=== PATIENT | male | born 1940 | race Caucasian/White ===

== ENCOUNTER 2016-07-30 18:00 | Emergency (ER) | payer MEDICARE ==
[~2016-07-30] VITALS: Ht 180.3 cm; Wt 131.8 kg
[2016-07-30 18:00] VITALS: BP 153/80; PULSE 60; RESP 18; TEMP 97.9; O2SAT 98
[~2016-07-30 18:00] MED LIST: AMOX500T PO; CALC0.25 PO; CARD4TAB2 PO; CARV12.5 PO; CLON.2 PO; COUM4TAB7 PO; GLIP5 PO; KLOR20TA6 PO; LISI-366 PO; NITR.4 SL; NORV2.5T11 PO; OXYBXL10 PO; PRAV40TA PO; TORS20 PO; VITA50LO PO; [UNRECOGNIZED DRUG - CODE]
[2016-07-30 18:25] VITALS: BP 153/80; PULSE 71; RESP 16; O2SAT 97
--- NOTE | 2016-07-30 18:28 | PD ---
HPI Chief Complaint: epigastric pain radiating to the chest Time Seen by Provider: 18:09 Travel History International Travel<30 days: No Contact w/Intl Traveler<30days: No Traveled to known affect area: No History of Present Illness HPI This is a 75-year-old gentleman with a history of malignant hypertension, diabetes mellitus, hyperlipidemia, obesity, who presents today with complaints of sudden onset of epigastric pain radiating into his chest. Patient reports the pain as a 5 out of 10 on the pain scale. He states it starts in his epigastrium and radiates up to his mid chest. He denies any vomiting but does state that he felt extremely nauseous. He also felt sweaty when the episode started. He reports it felt like "indigestion". The patient denies any cough. He does report shortness of breath. PFSH Past Medical History Arthritis: Yes Asthma: No Atrial Fibrillation: Yes Blood Disorders: No Heart Rhythm Problems: Yes (afib) Cancer: No Cardiovascular Problems: Yes High Cholesterol: Yes Chemotherapy: No Chest Pain: Yes Congestive Heart Failure: Yes COPD: Yes Coronary Artery Disease: Yes Diabetes: Yes Diminished Hearing: No Endocrine: Yes Gastrointestinal Disorders: Yes (TAKES LAXATIVES & INCREASED FIBER - MANUAL DISEMPACTION) GERD: No Genitourinary: Yes Hiatal Hernia: No Hypertension: Yes Immune Disorder: No Implanted Vascular Access Dvce: Yes Kidney Stones: No Musculoskeletal: No Neurologic: No Psychiatric: No Reproductive: No Respiratory: Yes Myocardial Infarction: No Radiation Therapy: No Renal Failure: No Sleep Apnea: Yes Thyroid Disease: Yes (HYPOTHYROID) Ulcer: No Past Surgical History Abdominal Surgery: Yes (gall baldder removal) AICD: No Arteriovenous Shunt: No Body Medical Devices: SPINAL HARDWARE Cardiac Surgery: No Cholecystectomy: Yes Ear Surgery: No Endocrine Surgery: No Eye Surgery: No Genitourinary Surgery: No Gynecologic Surgery: No Insulin Pump: No Joint Replacement: No Neurologic Surgery: No Oral Surgery: No Pacemaker: No Thoracic Surgery: No (L2-L5 fusion laminectomy) Other Surgery: Yes Social History Alcohol Use: Yes (GLASS OF WINE X1 WEEK) Tobacco Use: No (QUIT IN 1999) Substance Use: No Allergies-Medications (Allergen,Severity, Reaction): Coded Allergies: Latex (Verified Allergy, Severe, 07/30/16) Reported Meds & Prescriptions Reported Meds & Active Scripts Active Reported Glipizide 5 Mg Tab 5 Mg PO DAILY Take 30 minutes before a meal Calcitriol 0.25 Mcg Cap 0.25 Mcg PO DAILY Oxybutynin ER 24 HR (Oxybutynin Chloride) 10 Mg Tab 10 Mg PO DAILY Coumadin (Warfarin) 5 Mg Tab 5 Mg PO DAILY Pravastatin 40 Mg Tab 40 Mg PO DAILY Torsemide 20 Mg Tab 20 Mg PO DAILY Norvasc (Amlodipine Besylate) 2.5 Mg Tab 2.5 Mg PO DAILY Coreg (Carvedilol) 12.5 Mg Tab 12.5 Mg PO BID Symbicort Inh (Budesonide/Formoterol Fumarate) 160-4.5 Mcg/Act Aero 1 Puff INH Q12HR Potassium Chloride ER (Potassium Chloride) 20 Meq Tab 20 Meq PO BID Lisinopril 40 Mg Tab 40 Mg PO DAILY Catapres (Clonidine) 0.2 Mg Tab 0.2 Mg PO BID Bactrim DS (Sulfamethoxazole-Trimethoprim) 800-160 Mg Tab 1 Tab PO MOWEFR Take 1 tablet daily on Monday,Monday and Monday Keflex (Cephalexin) Unknown Strength Cap 1 Cap PO BID 21 Days Review of Systems General / Constitutional: No: Fever, Chills HENT: No: Headaches, Lightheadedness Cardiovascular: Positive: Chest Pain or Discomfort, Irregular Rhythm (history of atrial fibrillation) Respiratory: Positive: Shortness of Breath, No: Cough Gastrointestinal: Positive: Nausea, Abdominal Pain (be gastric), Other ( history of neurogenic:), No: Vomiting Genitourinary: Positive: Other (patient self catheters secondary to her neurogenic bladder) Musculoskeletal: Positive: Edema (chronic), No: Arthralgias Neurologic: No: Weakness, Dizziness, Syncope Physical Exam Narrative GENERAL: This is a obese male who presents with mild respiratory discomfort. SKIN: Warm and dry. HEAD: Atraumatic. Normocephalic. EYES: No scleral icterus. No injection or drainage. ENT: No nasal bleeding or discharge. Mucous membranes pink and moist. NECK: Trachea midline. Supple CARDIOVASCULAR: Rate in the 50s. Irregularly irregular consistent with his history of atrial fibrillation. RESPIRATORY: No accessory muscle use. Clear to auscultation. Breath sounds equal bilaterally. No Rales or rhonchi appreciated. GASTROINTESTINAL: Abdomen soft, obese, non-tender, nondistended. There is no tenderness to palpation on the abdominal exam including the epigastrium. MUSCULOSKELETAL: No obvious deformities. No cyanosis. Bilateral lower extremity edema. NEUROLOGICAL: Awake and alert. No obvious cranial nerve deficits. Motor grossly within normal limits. Normal speech. Data Data Last Documented VS Vital Signs Date Time Temp Pulse Resp B/P Pulse Ox O2 Delivery O2 Flow Rate FiO2 07/30/16 18:25 71 16 153/80 97 Room Air 07/30/16 18:00 97.9 Orders Electrocardiogram (07/30/16 ) Ckmb (Isoenzyme) Profile (07/30/16 18:16) Complete Blood Count With Diff (07/30/16 18:16) Comprehensive Metabolic Panel (07/30/16 18:16) Magnesium (Mg) (07/30/16 18:16) Prothrombin Time / Inr (Pt) (07/30/16 18:16) Act Partial Throm Time (Ptt) (07/30/16 18:16) Troponin I (07/30/16 18:16) Lipase (07/30/16 18:16) Chest, Single Ap (07/30/16 18:16) Ecg Monitoring (07/30/16 18:16) Bilateral Bp Monitoring (07/30/16 18:16) Iv Access Insert/Monitor (07/30/16 18:16) Oximetry (07/30/16 18:16) Oxygen Administration (07/30/16 18:16) Sodium Chloride 0.9% Flush (Ns Flush) (07/30/16 18:30) Nitroglycerin Sl (Nitrostat Sl) (07/30/16 18:30) Labs Laboratory Tests Test 07/30/16 18:20 White Blood Count 10.1 TH/MM3 Red Blood Count 4.47 MIL/MM3 Hemoglobin 13.7 GM/DL Hematocrit 39.6 % Mean Corpuscular Volume 88.6 FL Mean Corpuscular Hemoglobin 30.6 PG Mean Corpuscular Hemoglobin 34.6 % Concent Red Cell Distribution Width 14.0 % Platelet Count 190 TH/MM3 Mean Platelet Volume 7.8 FL Neutrophils (%) (Auto) 78.1 % Lymphocytes (%) (Auto) 14.8 % Monocytes (%) (Auto) 5.1 % Eosinophils (%) (Auto) 1.4 % Basophils (%) (Auto) 0.6 % Neutrophils # (Auto) 7.9 TH/MM3 Lymphocytes # (Auto) 1.5 TH/MM3 Monocytes # (Auto) 0.5 TH/MM3 Eosinophils # (Auto) 0.1 TH/MM3 Basophils # (Auto) 0.1 TH/MM3 CBC Comment DIFF FINAL Differential Comment Prothrombin Time 22.0 SEC Prothromb Time International 1.9 RATIO Ratio Activated Partial 32.1 SEC Thromboplast Time Sodium Level 139 MEQ/L Potassium Level 3.6 MEQ/L Chloride Level 99 MEQ/L Carbon Dioxide Level 33.4 MEQ/L Anion Gap 7 MEQ/L Blood Urea Nitrogen 16 MG/DL Creatinine 1.55 MG/DL Estimat Glomerular Filtration 44 ML/MIN Rate Random Glucose 214 MG/DL Calcium Level 8.6 MG/DL Magnesium Level 2.1 MG/DL Aspartate Amino Transf 47 U/L (AST/SGOT) Albumin 3.5 GM/DL Lipase 219 U/L [facility] Medical Decision Making Medical Screen Exam Complete: Yes Emergency Medical Condition: Yes Medical Record Reviewed: Yes Differential Diagnosis ACS versus pancreatitis versus gastritis versus peptic ulcer disease Narrative Course 75-year-old gentleman with history of hypertension malignant hyperthermia, hyperlipidemia, diabetes no skull who presents today with complaints of epigastric pain with radiation up to his chest. The patient has A. fib with slow ventricular sponson EKG. Cardiac enzymes are pending at this time. The patient be signed out to Dr. Cordova, physician replacing this physician, who will make the appropriate disposition. I believe the patient will likely need to be admitted as an inpatient rather than the chest pain center. Diagnosis Primary Impression: Atypical chest pain Additional Impressions: A-fib Malignant hypertension Hyperlipidemia associated with type 2 diabetes mellitus Rigoberto Gordon MD Jul 30, 2016 18:28
[2016-07-30] MEDS ORDERED: SODIUM CHLORIDE 0.9% FLUSH 5 ML FLUSH IVF PRN (18:30)
[2016-07-30] MEDS ORDERED: PRAV40TA2 PO (18:33)
[2016-07-30] MEDS ORDERED: CALC0.25 PO (18:33)
[2016-07-30] MEDS ORDERED: TORS20TA PO (18:33)
[2016-07-30] MEDS ORDERED: CLON.2 PO (18:33)
[2016-07-30] MEDS ORDERED: LISI40TA PO (18:33)
[2016-07-30] MEDS ORDERED: COUM5TAB PO (18:33)
[2016-07-30] MEDS ORDERED: CARV12.5 PO (18:33)
[2016-07-30] MEDS ORDERED: POTA-163 PO (18:33)
[2016-07-30] MEDS ORDERED: GLIP5TAB8 PO (18:33)
[2016-07-30] MEDS: NITROGLYCERIN 0.4 MG SL 25 TABS/BTL SL SCH ×3 (18:33→18:47)
[2016-07-30] MEDS ORDERED: CEPH-459 PO (18:33)
[2016-07-30] MEDS ORDERED: SYMB160A INH (18:33)
[2016-07-30] MEDS ORDERED: NORV2.5T PO (18:33)
[2016-07-30] MEDS ORDERED: OXYB10TA PO (18:33)
[2016-07-30] MEDS ORDERED: BACT800T5 PO (18:33)
[2016-07-30 18:41] LABS: AUTOMATED NEUTROPHIL # 7.9 TH/MM3 (1.8-7.7); BASOPHIL # 0.1 TH/MM3 (0-0.2); BASOPHIL % 0.6 % (0.0-2.0); EOSINOPHIL # 0.1 TH/MM3 (0-0.4); EOSINOPHIL % 1.4 % (0.0-4.0); HEMATOCRIT 39.6 % (39.0-51.0); HEMO FLAGS DIFF FINAL; LYMPH % 14.8 % (9.0-44.0); LYMPHOCYTE # 1.5 TH/MM3 (1.0-4.8); MEAN CELL VOLUME 88.6 FL (80.0-100.0); MEAN CORPUSCULAR HEMOGLOBIN 30.6 PG (27.0-34.0); MEAN CORPUSCULAR HGB CONC 34.6 % (32.0-36.0); MONO % 5.1 % (0.0-8.0); NEUT % 78.1 % (16.0-70.0); PLATELET COUNT 190 TH/MM3 (150-450); RED BLOOD COUNT 4.47 MIL/MM3 (4.50-5.90); WHITE BLOOD COUNT 10.1 TH/MM3 (4.0-11.0)
[2016-07-30 18:50] LABS: APTT (PATIENT) 32.1 SEC (24.3-30.1); INTERNATIONAL NORMALIZED RATIO 1.9 RATIO
[2016-07-30 19:03] LABS: ANION GAP 7 MEQ/L (5-15); AST (GOT) 47 U/L (15-37); BICARBONATE 33.4 MEQ/L (21.0-32.0); BLOOD UREA NITROGEN 16 MG/DL (7-18); CHLORIDE 99 MEQ/L (98-107); GLOMERULAR FILTRATION RATE 44 ML/MIN (>89); MAGNESIUM 2.1 MG/DL (1.5-2.5); POTASSIUM 3.6 MEQ/L (3.5-5.1); SODIUM (NA) 139 MEQ/L (136-145)
--- NOTE | 2016-07-30 19:04 | RADRPT ---
EXAM DATE/TIME: 07/30/2016 18:33 [facility] COMPARISON: No previous studies available for comparison. INDICATIONS : Chronic Chest Pain MEDICAL HISTORY : Hyperthyroidism. Renal failure, acute. Hypertension. Hypercholesterolemia. Diabetes mellitus typ e II. AFIB, Sleep Apnea. Arthritis. SURGICAL HISTORY : Cholecystectomy ENCOUNTER: Initial ACUITY: 1 day PAIN SCORE: 6/10 LOCATION: Bilateral chest FINDINGS: A single view of the chest demonstrates cardiomegaly. Minimal basilar atelectasis. No consolidation o r effusion. CONCLUSION: 1. Minimal basilar atelectasis. Augusto Landis MD on July 30, 2016 at 19:02 Board Certified Radiologist. This report was verified electronically.
[2016-07-30 19:08] LABS: ALKALINE PHOSPHATASE 97 U/L (45-117); ALT (GPT) 26 U/L (12-78); TOTAL BILIRUBIN ADULT 2.3 MG/DL (0.2-1.0)
[2016-07-30 20:03] LABS: CREATINE KINASE 80 U/L (39-308)
--- NOTE | 2016-07-30 20:19 | PD ---
Physical Exam Date Seen by Provider: Jul 30, 2016 Narrative The patient was seen from Dr. Gordon at [address] labs[address]. Gordon' s plan was to admit the patient hospital for further evaluation. The patient's chief complaint to me when I went in to see him was "I'm ready to go home now." Patient reports abdominal bloating. He states that he has a neurogenic bowel and bladder and has to self. His disimpacts him. Patient states that he just sometimes gets gassy and bloated. He states that he just needs something for gas and he would like to go home. He does not feel that he needs a laxative. He states that he does not need an enema. Data Data Last Documented VS Vital Signs Date Time Temp Pulse Resp B/P Pulse Ox O2 Delivery O2 Flow Rate FiO2 07/30/16 18:25 71 16 153/80 97 Room Air 07/30/16 18:00 97.9 Orders Electrocardiogram (07/30/16 ) Ckmb (Isoenzyme) Profile (07/30/16 18:16) Complete Blood Count With Diff (07/30/16 18:16) Comprehensive Metabolic Panel (07/30/16 18:16) Magnesium (Mg) (07/30/16 18:16) Prothrombin Time / Inr (Pt) (07/30/16 18:16) Act Partial Throm Time (Ptt) (07/30/16 18:16) Troponin I (07/30/16 18:16) Lipase (07/30/16 18:16) Chest, Single Ap (07/30/16 18:16) Ecg Monitoring (07/30/16 18:16) Bilateral Bp Monitoring (07/30/16 18:16) Iv Access Insert/Monitor (07/30/16 18:16) Oximetry (07/30/16 18:16) Oxygen Administration (07/30/16 18:16) Sodium Chloride 0.9% Flush (Ns Flush) (07/30/16 18:30) Nitroglycerin Sl (Nitrostat Sl) (07/30/16 18:30) Labs Laboratory Tests Test 07/30/16 18:20 White Blood Count 10.1 TH/MM3 Red Blood Count 4.47 MIL/MM3 Hemoglobin 13.7 GM/DL Hematocrit 39.6 % Mean Corpuscular Volume 88.6 FL Mean Corpuscular Hemoglobin 30.6 PG Mean Corpuscular Hemoglobin 34.6 % Concent Red Cell Distribution Width 14.0 % Platelet Count 190 TH/MM3 Mean Platelet Volume 7.8 FL Neutrophils (%) (Auto) 78.1 % Lymphocytes (%) (Auto) 14.8 % Monocytes (%) (Auto) 5.1 % Eosinophils (%) (Auto) 1.4 % Basophils (%) (Auto) 0.6 % Neutrophils # (Auto) 7.9 TH/MM3 Lymphocytes # (Auto) 1.5 TH/MM3 Monocytes # (Auto) 0.5 TH/MM3 Eosinophils # (Auto) 0.1 TH/MM3 Basophils # (Auto) 0.1 TH/MM3 CBC Comment DIFF FINAL Differential Comment Prothrombin Time 22.0 SEC Prothromb Time International 1.9 RATIO Ratio Activated Partial 32.1 SEC Thromboplast Time Sodium Level 139 MEQ/L Potassium Level 3.6 MEQ/L Chloride Level 99 MEQ/L Carbon Dioxide Level 33.4 MEQ/L Anion Gap 7 MEQ/L Blood Urea Nitrogen 16 MG/DL Creatinine 1.55 MG/DL Estimat Glomerular Filtration 44 ML/MIN Rate Random Glucose 214 MG/DL Calcium Level 8.6 MG/DL Magnesium Level 2.1 MG/DL Total Bilirubin 2.3 MG/DL Aspartate Amino Transf 47 U/L (AST/SGOT) Alanine Aminotransferase 26 U/L (ALT/SGPT) Alkaline Phosphatase 97 U/L Total Creatine Kinase 80 U/L Troponin I LESS THAN 0.02 NG/ML Total Protein 6.9 GM/DL Albumin 3.5 GM/DL Lipase 219 U/L [facility] Supervised Visit with AISHWARYA: No Narrative Course Patient is having no respiratory distress. His heart is in a sinus rhythm. His abdomen is soft but distended. There is no tenderness to palpation. CBC & BMP Diagram 07/30/16 18:20 Last Impressions Chest X-Ray 07/30/166 Signed Impressions: Service Date/Time: Saturday, July 30, 2016 18:33 - CONCLUSION: 1. Minimal basilar atelectasis. Augusto Landis MD CE neg. Diagnosis Primary Impression: Atypical chest pain Additional Impressions: Malignant hypertension Hyperlipidemia associated with type 2 diabetes mellitus A-fib Qualified Code: I48.2 - Chronic atrial fibrillation Patient Instructions: Acute Abdominal Pain (ED), General Instructions Disposition: 01 DISCHARGE HOME Condition: Stable Hafsa Cordova MD Jul 30, 2016 20:19
[2016-07-30 20:30] VITALS: BP 172/75; PULSE 64; RESP 18; O2SAT 97
[2016-07-30] MEDS ORDERED: SIMETHICONE 125 MG CHEWABLE TAB PO ONE (20:30)
--- NOTE | 2016-07-31 15:35 | EKG ---
Date Performed: 07/30/2016 Time Performed: 18:12:32 PTAGE: 75 years EKG: ATRIAL FIBRILLATION WITH SLOW VENTRICULAR RESPONSE RIGHT BUNDLE BRANCH BLOCK Since previous tracing, no significant change noted ABNORMAL ECG PREVIOUS TRACING : 02/12/2015 02.50 DOCTOR: Dru Adamson Interpretating Date/Time 07/31/2016 15:34:31
== END 2016-07-30 21:02 | disposition home or self-care (01) ==
LOC: NEPC 18:00
DX: R07.89 Other chest pain (principal); I10 Essential (primary) hypertension; E78.5 Hyperlipidemia, unspecified; E11.9 Type 2 diabetes mellitus without complications; I48.91 Unspecified atrial fibrillation; K59.2 Neurogenic bowel, not elsewhere classified; N31.9 Neuromuscular dysfunction of bladder, unspecified; Z87.891 Personal history of nicotine dependence
CPT/HCPCS: 71010; 80053; 82550; 83690; 83735; 84484; 85025; 85610; 85730; 93005

== ENCOUNTER 2017-09-21 06:26 | Emergency (ER) | payer MEDICARE ==
[~2017-09-21] VITALS: Ht 182.9 cm; Wt 129.4 kg
[~2017-09-21 06:26] MED LIST changes: -AMOX500T PO; +BACT800T5 PO; -CARD4TAB2 PO; +CEPH-459 PO; -COUM4TAB7 PO; +COUM5TAB PO; -GLIP5 PO; +GLIP5TAB8 PO; -KLOR20TA6 PO; -LISI-366 PO; +LISI40TA PO; -NITR.4 SL; +NORV2.5T PO; -NORV2.5T11 PO; +OXYB10TA PO; -OXYBXL10 PO; +POTA-163 PO; -PRAV40TA PO; +PRAV40TA2 PO; +SYMB160A INH; -TORS20 PO; +TORS20TA PO; -VITA50LO PO; -[UNRECOGNIZED DRUG - CODE]
[2017-09-21 06:34] VITALS: BP 168/79; PULSE 103; TEMP 99.9; O2SAT 95
[2017-09-21] MEDS ORDERED: NITR1SUS2 PO (06:52)
[2017-09-21] MEDS ORDERED: DOXA1TAB43 PO (06:55)
--- NOTE | 2017-09-21 07:12 | PD ---
HPI Chief Complaint: Skin Problem Time Seen by Provider: 06:54 Travel History International Travel<30 days: No Contact w/Intl Traveler<30days: No Traveled to known affect area: No History of Present Illness HPI 77-year-old male is complaining of pain and swelling of his right leg. He has had recurrent bouts of cellulitis and thinks is having cellulitis of the right leg. He was diagnosed with cellulitis of the right leg on September 02 of this year. He was put on Augmentin and had considerable improvement. However it started getting worse yesterday and last night he had temp of 100.3. The redness and swelling has recurred. He has a history of type 2 diabetes. He did have a Doppler ultrasound on August 30 for DVT which was negative. He has had a laminectomy at L3 through L5 which was left in with a neurogenic bladder and bowel. He is able to walk. He has pain with walking on the right leg. PFSH Past Medical History Hx Anticoagulant Therapy: Yes (WARFARIN ) Arthritis: Yes Asthma: No Atrial Fibrillation: Yes (A-FIB/A-FLUTTER) Blood Disorders: No Heart Rhythm Problems: Yes (afib, RBBB) Cancer: No Cardiovascular Problems: Yes (A-FIB/A-FLUTTER) High Cholesterol: Yes Chemotherapy: No Chest Pain: Yes Congestive Heart Failure: Yes COPD: Yes Coronary Artery Disease: Yes Diabetes: Yes Patient Takes Glucophage: No Diminished Hearing: No Endocrine: Yes Gastrointestinal Disorders: Yes (TAKES LAXATIVES & INCREASED FIBER - MANUAL DISEMPACTION) GERD: No Genitourinary: Yes Hiatal Hernia: No Hypertension: Yes Immune Disorder: No Implanted Vascular Access Dvce: Yes Kidney Stones: No Medical other: Yes ( neurogenic bladder and bowel) Musculoskeletal: No Neurologic: No Psychiatric: No Reproductive: No Respiratory: Yes (COPD) Myocardial Infarction: No Radiation Therapy: No Renal Failure: No Sleep Apnea: Yes Thyroid Disease: Yes (HYPOTHYROID) Ulcer: No Tetanus Vaccination: Unknown ?: Not Past Surgical History Abdominal Surgery: Yes (gall baldder removal) AICD: No Arteriovenous Shunt: No Body Medical Devices: SPINAL HARDWARE Cardiac Surgery: No Cholecystectomy: Yes Ear Surgery: No Endocrine Surgery: No Eye Surgery: No Genitourinary Surgery: No Gynecologic Surgery: No Insulin Pump: No Joint Replacement: No Neurologic Surgery: No Oral Surgery: No Pacemaker: No Other Surgery: Yes Social History Alcohol Use: Yes (GLASS OF WINE X1 WEEK) Tobacco Use: No (QUIT IN 1999) Substance Use: No Allergies-Medications (Allergen,Severity, Reaction): Coded Allergies: latex (Verified Allergy, Severe, 09/21/17) Reported Meds & Prescriptions Reported Meds & Active Scripts Active Reported Doxazosin (Doxazosin Mesylate) 8 Mg Tab 8 Mg PO DAILY Nitrofurantoin Liq (Nitrofurantoin) 25 Mg/5 Ml Susp 100 Mg PO QID Glipizide 5 Mg Tab 5 Mg PO DAILY Take 30 minutes before a meal Calcitriol 0.25 Mcg Cap 0.25 Mcg PO DAILY Oxybutynin ER 24 HR (Oxybutynin Chloride) 10 Mg Tab 10 Mg PO DAILY Coumadin (Warfarin) 5 Mg Tab 5 Mg PO DAILY Pravastatin 40 Mg Tab 40 Mg PO DAILY Torsemide 20 Mg Tab 20 Mg PO DAILY Norvasc (Amlodipine Besylate) 2.5 Mg Tab 2.5 Mg PO DAILY Coreg (Carvedilol) 12.5 Mg Tab 12.5 Mg PO BID Potassium Chloride ER (Potassium Chloride) 20 Meq Tab 20 Meq PO BID Lisinopril 40 Mg Tab 40 Mg PO DAILY Catapres (Clonidine) 0.2 Mg Tab 0.2 Mg PO BID Review of Systems General / Constitutional: Positive: Fever, Chills Eyes: No: Diploplia, Blurred Vision HENT: No: Headaches, Vertigo Cardiovascular: No: Chest Pain or Discomfort Respiratory: No: Shortness of Breath Gastrointestinal: No: Nausea, Vomiting Genitourinary: Positive: Dysuria Musculoskeletal: No: Myalgias Skin: Positive Rash Neurologic: No: Weakness Hematologic/Lymphatic: No: Easy Bruising Physical Exam Narrative GENERAL: Well-developed male SKIN: Focused skin assessment warm/dry. HEAD: Atraumatic. Normocephalic. EYES: Pupils equal and round. No scleral icterus. No injection or drainage. ENT: No nasal bleeding or discharge. Mucous membranes pink and moist. NECK: Trachea midline. No JVD. CARDIOVASCULAR: Regular rate and rhythm. No murmur appreciated. RESPIRATORY: No accessory muscle use. Clear to auscultation. Breath sounds equal bilaterally. GASTROINTESTINAL: Abdomen soft, non-tender, nondistended. Hepatic and splenic margins not palpable. MUSCULOSKELETAL: No obvious deformities. No clubbing. No cyanosis. No edema. He has extensive erythema and swelling of the right leg. It extends from the below the knee above the knee to the groin. Left leg is normal NEUROLOGICAL: Awake and alert. No obvious cranial nerve deficits. Motor grossly within normal limits. Normal speech. PSYCHIATRIC: Appropriate mood and affect; insight and judgment normal. Data Data Last Documented VS Vital Signs Date Time Temp Pulse Resp B/P (MAP) Pulse Ox O2 Delivery O2 Flow Rate FiO2 09/21/17 11:23 09/21/17 11:22 76 16 98 Room Air 09/21/17 06:34 99.9 Orders Orders Complete Blood Count With Diff (09/21/17 07:07) Comprehensive Metabolic Panel (09/21/17 07:07) Blood Culture (09/21/17 07:07) Us Leg Venous Doppler Bilat (09/21/17 ) Lactic Acid Sepsis Protocol (09/21/17 07:09) Direct Bilirubin (09/21/17 07:34) Potassium Chloride (Kcl) (09/21/17 08:15) [facility] ([facility] (09/21/17 09:15) Dalbavancin Inj (Dalvance Inj) (09/21/17 09:08) [facility] ([facility] (09/21/17 10:00) Ed Discharge Order (09/21/17 12:32) Labs Laboratory Tests Test 09/21/17 07:34 09/21/17 07:35 White Blood Count 18.9 TH/MM3 Red Blood Count 5.00 MIL/MM3 Hemoglobin 15.1 GM/DL Hematocrit 44.7 % Mean Corpuscular Volume 89.3 FL Mean Corpuscular Hemoglobin 30.1 PG Mean Corpuscular Hemoglobin Concent 33.7 % Red Cell Distribution Width 13.3 % Platelet Count 202 TH/MM3 Mean Platelet Volume 7.4 FL Neutrophils (%) (Auto) 92.8 % Lymphocytes (%) (Auto) 4.7 % Monocytes (%) (Auto) 1.8 % Eosinophils (%) (Auto) 0.5 % Basophils (%) (Auto) 0.2 % Neutrophils # (Auto) 17.6 TH/MM3 Lymphocytes # (Auto) 0.9 TH/MM3 Monocytes # (Auto) 0.3 TH/MM3 Eosinophils # (Auto) 0.1 TH/MM3 Basophils # (Auto) 0.0 TH/MM3 CBC Comment DIFF FINAL Differential Comment Blood Urea Nitrogen 18 MG/DL Creatinine 1.50 MG/DL Random Glucose 210 MG/DL Total Protein 8.1 GM/DL Albumin 3.9 GM/DL Calcium Level 8.8 MG/DL Alkaline Phosphatase 79 U/L Aspartate Amino Transf (AST/SGOT) 16 U/L Alanine Aminotransferase (ALT/SGPT) 15 U/L Total Bilirubin 3.3 MG/DL Direct Bilirubin 0.4 MG/DL Sodium Level 137 MEQ/L Potassium Level 3.3 MEQ/L Chloride Level 98 MEQ/L Carbon Dioxide Level 29.2 MEQ/L Anion Gap 10 MEQ/L Estimat Glomerular Filtration Rate 45 ML/MIN Lactic Acid Level 1.6 mmol/L [facility] Medical Decision Making Medical Screen Exam Complete: Yes Emergency Medical Condition: Yes Medical Record Reviewed: Yes Differential Diagnosis Patient has extensive cellulitis of the right leg. I discussed admission with the patient and that was my recommendation. The patient has a strong desire not to be admitted to the hospital. Because of his neurogenic bladder stool he does much better at home. I felt that a trial about Delvance may be indicated in this case. I have discussed this with the patient and he is agreeable. He will be given the [facility] and arrangements for follow-up will be made Narrative Course Pt has been given dalvance and follow up has been arranged. Diagnosis Primary Impression: Cellulitis of right leg Disposition: 01 DISCHARGE HOME Condition: Stable Mathew Ellsworth MD Sep 21, 2017 07:12
[2017-09-21 07:40] LABS: AUTOMATED NEUTROPHIL # 17.6 TH/MM3 (1.8-7.7); BASOPHIL % 0.2 % (0.0-2.0); EOSINOPHIL # 0.1 TH/MM3 (0-0.4); EOSINOPHIL % 0.5 % (0.0-4.0); HEMATOCRIT 44.7 % (39.0-51.0); HEMOGLOBIN 15.1 GM/DL (13.0-17.0); LYMPH % 4.7 % (9.0-44.0); LYMPHOCYTE # 0.9 TH/MM3 (1.0-4.8); MEAN CELL VOLUME 89.3 FL (80.0-100.0); MEAN CORPUSCULAR HEMOGLOBIN 30.1 PG (27.0-34.0); MEAN CORPUSCULAR HGB CONC 33.7 % (32.0-36.0); MEAN PLATELET VOLUME 7.4 FL (7.0-11.0); MONO % 1.8 % (0.0-8.0); MONOCYTE # 0.3 TH/MM3 (0-0.9); NEUT % 92.8 % (16.0-70.0); PLATELET COUNT 202 TH/MM3 (150-450); RED CELL DISTRIBUTION WIDTH 13.3 % (11.6-17.2); WHITE BLOOD COUNT 18.9 TH/MM3 (4.0-11.0)
[2017-09-21 07:50] LABS: CHLORIDE 98 MEQ/L (98-107); SODIUM (NA) 137 MEQ/L (136-145)
[2017-09-21 08:14] LABS: ALBUMIN 3.9 GM/DL (3.4-5.0); BICARBONATE 29.2 MEQ/L (21.0-32.0); CALCIUM 8.8 MG/DL (8.5-10.1); GLUCOSE,RANDOM 210 MG/DL (74-106)
[2017-09-21] MEDS ORDERED: POTASSIUM CHLORIDE 20 MEQ CONTROLLED RELEASE TAB PO ONE (08:15)
[2017-09-21 08:17] LABS: ALT (GPT) 15 U/L (12-78); AST (GOT) 16 U/L (15-37); BLOOD UREA NITROGEN 18 MG/DL (7-18)
[2017-09-21 08:18] LABS: DIRECT BILIRUBIN ADULT 0.4 MG/DL (0.0-0.2); GLOMERULAR FILTRATION RATE 45 ML/MIN (>89)
[2017-09-21 08:19] LABS: TOTAL BILIRUBIN ADULT 3.3 MG/DL (0.2-1.0); TOTAL PROTEIN 8.1 GM/DL (6.4-8.2)
[2017-09-21 08:20] LABS: ALKALINE PHOSPHATASE 79 U/L (45-117)
[2017-09-21] MEDS ORDERED: DALBAVANCIN INJ 1,500 MG in DEXTROSE 5% IN WATE 500 ML INJ 500 ML IV STA ×2 (09:08)
[2017-09-21] MEDS ORDERED: MISCELLANEOUS PHARMACY INFORMATION XX ONE ×2 (09:15→10:00)
--- NOTE | 2017-09-21 09:38 | RADRPT ---
EXAM DATE/TIME: 09/21/2017 08:06 [facility] COMPARISON: No previous studies available for comparison. EXTERNAL COMPARISON : [facility], US LEG VENOUS DOPPLER, RIGHT, August 29, 2017 INDICATIONS : Bilateral leg swelling. MEDICAL HISTORY : Hypothyroidism. Congestive heart failure. Hypercholesterolemia. Afib. Coronary artery disease. COPD. Hyperlipidemia. Anticoagulant therapy, Warfarin. Chest pain. HTN. Emphysema. Sleep apnea. Dyspnea. Ar thritis. Diabetes. SURGICAL HISTORY : Cholecystectomy. L2-L5 fusion laminectomy. ENCOUNTER: Initial ACUITY: 1 week PAIN SCORE: 4/10 LOCATION: Bilateral leg. TECHNIQUE: Venous ultrasound of the left and right leg was performed from the inguinal ligament to the proximal calf. Real-time, color Doppler and spectral tracing, compression and augmentation techniques were us ed. FINDINGS: RIGHT LEG: There is normal compressibility of the deep venous system from the inguinal region to the proximal ca lf. No echogenic clot is seen in the lumen of the common femoral, femoral, popliteal, and posterior tibial veins. There is a normal response of the venous system to proximal and distal augmentation an d respiration. LEFT LEG: There is normal compressibility of the deep venous system from the inguinal region to the proximal ca lf. No echogenic clot is seen in the lumen of the common femoral, femoral, popliteal, and posterior tibial veins. There is a normal response of the venous system to proximal and distal augmentation an d respiration. CONCLUSION: No evidence of deep venous thrombosis within the lower extremities. Luis Allen MD on September 21, 2017 at 9:35 Board Certified Radiologist. This report was verified electronically.
[2017-09-21 11:22] VITALS: BP 144/93; PULSE 76; RESP 16; O2SAT 98
== END 2017-09-21 13:20 | disposition home or self-care (01) ==
LOC: PHED 06:26
DX: L03.115 Cellulitis of right lower limb (principal); E11.9 Type 2 diabetes mellitus without complications; I48.91 Unspecified atrial fibrillation; I48.92 Unspecified atrial flutter; I11.0 Hypertensive heart disease with heart failure; I50.9 Heart failure, unspecified; I25.10 Atherosclerotic heart disease of native coronary artery without angina pectoris; E03.9 Hypothyroidism, unspecified; Z87.891 Personal history of nicotine dependence
CPT/HCPCS: 80053; 82248; 83605; 85025; 87040; 93970; 96365; 99284; J0875; J7060